=== PATIENT | male | born 1970 | race Caucasian/White ===

== ENCOUNTER 2022-10-06 06:25 | Day surgery (SDC) | payer OTHER ==
[~2022-10-06] VITALS: Ht 193 cm; Wt 130.2 kg
[~2022-10-06 06:25] MED LIST: AVAPRO150 MG PO; IBU400 MG PO; LISINOPRIL10 MG PO; VITAMIN C100 MG PO; VITAMIN C500 M5 PO; ZYRTEC10 MG PO
[2022-10-06] MEDS ORDERED: BUDESONIDE0.5 MG/2 M INH (06:48)
--- NOTE | 2022-10-06 08:13 | NUR ---
10/06/22 0813 Xi Pulliam 0801- PT ARRIVES TO PACU AWAKE AND TALKING WITH STAFF. PT REPORTS NO PAIN OR NAUSEA. RESP EVEN AND UNLABORED. OXYGEN SAT MID 90'S ON 2L VIA NC. PT REPORTS HE IS HAVING INTERMITTENT CRAMPING. PT ENCOURAGED TO PASS FLATUS. 0809- PT PASSING FLATUS. 0812- OXYGEN TITRATED OFF.
--- NOTE | 2022-10-06 08:29 | NUR ---
PT ALERT,ORIENTED AND SUPPORTED BY HIS PILAR. PT HERE FOR HIS FIRST SCOPE. ALL QUESTIONS ASKED ANSWERED, PILAR WILL REMAIN FOR DC. BLESSING GIVEN. WILL FOLLOW
--- NOTE | 2022-10-06 11:09 | OR ---
[facility] [address] [place], [place] [address] Signed DATE OF OPERATION: 10/06/2022 SURGEON: Hilary Mcwilliams MD PREOPERATIVE DIAGNOSIS: Screening. POSTOPERATIVE DIAGNOSES: 1. Biopsy of the terminal ileum/ileocecal valve (? Lymphoid tissue). 2. 4 mm polyp at 40 cm. 3. Minimal sigmoid diverticulosis. PROCEDURE: Colonoscopy with hot biopsy. ESTIMATED BLOOD LOSS: None. INDICATIONS: Jennie is a 52-year-old gentleman, who initially came in October of 2021 to schedule his initial screening colonoscopy. 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 He also had an arthroscopy of his knee at that time. He then came back in July to reschedule the screening colonoscopy. He said he has no lower GI complaints. He had spoken to his father and found out that his father did not have any colonic polyps. There is otherwise no family history of colon cancer or polyps in the remainder of the family. In the office, I had given Jennie a pamphlet on colonoscopy. He understands the nature of the test. There is risk including, but not limited to gas bloating, crampy abdominal pain, bleeding, perforation requiring surgery, and missed diagnosis. He also understands the need for IV conscious sedation. He had expressed understanding and wished to proceed. PROCEDURE NOTE: Jennie was taken into our endoscopy suite and placed in the left lateral decubitus position. He was given IV sedation with 150 mcg of fentanyl and 7 mg of Versed. A digital rectal exam was performed and this was unremarkable. No external hemorrhoids. He had good sphincter tone. Just minimal induration to the prostate. The adult colonoscope was then introduced and advanced all around into the cecum under direct visualization of the camera without difficulty. It took just a little extra sedation during the procedure. He seems to have some level of sleep apnea as well. Overall, his prep was good. We could easily see the cecum and the ileocecal valve. He had some Electronically Signed By: HILARY MCWILLIAMS MD 10/06/22 1109 PATIENT NAME: JENNIE JETER OPERATIVE REPORT DATE OF : 70 REPORT #: [id number] PHYSICIAN: HILARY MCWILLIAMS MD PCP: MARE LR PA-C REPORT IS CONFIDENTIAL AND NOT TO BE RELEASED WITHOUT AUTHORIZATION [facility] [address] [place] [id number] Signed multilobulated lymphoid tissue there at the opening to the ileocecal valve. We went ahead and took several biopsies in this area for pathologic review. We had turned the camera opening short distance and we were unable to pass it any further up the terminal ilium. It looked healthy to us. The scope was then slowly withdrawn. He did have a small polyp back at 40 cm which we removed with the help of hot biopsy forceps. He has very minimal sigmoid diverticulosis. They were small in size, few in number, and scattered about. The rectum was unremarkable. Upon retroflexion of the scope, there was no additional pathology noted above the anal canal. After this, the gas was suctioned out and the colonoscope removed. Jennie tolerated the procedure quite well. RECOMMENDATIONS: I will see Jennie back in my office in 7 to 14 days to review his results. Hilary Mcwilliams MD ALB/MODL /[id number] cc: MD Mare Leblanc PA Copies: HILARY MCWILLIAMS MD ~ Electronically Signed By: HILARY MCWILLIAMS MD 10/06/22 1109 PATIENT NAME: JENNIE JETER OPERATIVE REPORT DATE OF : 70 REPORT #: [id number] PHYSICIAN: HILARY MCWILLIAMS MD PCP: MARE LR PA-C REPORT IS CONFIDENTIAL AND NOT TO BE RELEASED WITHOUT AUTHORIZATION
--- NOTE | 2022-10-07 16:24 | PATH ---
[facility] [address] [facility] [place] [address] Signed SPECIMEN(S): A ILEOCECAL VALVE CECAL BX SPECIMEN(S): B COLON POLYP AT 40 CM SPECIMEN SOURCE: A. ILEOCECAL VALVE CECAL BX B. COLON POLYP AT 40 CM CLINICAL HISTORY: Screening. Diverticulosis. FINAL PATHOLOGIC DIAGNOSIS: A. Ileocecal valve and cecal biopsy: - Benign small bowel-type mucosa with focal superficial epithelial erosion. - Negative for atypical features. B. Colon polyp at 40 cm: - Hyperplastic polyp (one fragment). J[facility]:C2NR MICROSCOPIC EXAMINATION: Histologic sections of all submitted blocks are examined by light microscopy. These findings, together with the gross examination, support the pathologic diagnosis. GROSS DESCRIPTION: A. The specimen, labeled and designated "Brenda, ileocecal valve and cecum biopsy," is received in formalin and consists of three colon soft tissue fragments, ranging from 0.2 cm. Entirely submitted in (A1). B. The specimen, labeled and designated "Brenda, colon polyp at 40 cm," is received in formalin and consists of one colon soft tissue fragment, 0.1 cm. Entirely submitted in (B1). JS (under the direct supervision of a pathologist) The Gross Description was prepared using a voice recognition system. The report was reviewed for accuracy; however, sound-alike word errors, addition and/or deletions may occur. If there is any question about this report, please contact Client Services. PERFORMING LABORATORY: The technical component was performed by [employer], [address] [place] [id number] (CLIA# [id number]). Professional interpretation was performed by [employer] Pathology [facility] PATIENT NAME: JENNIE JETER PATHOLOGY DATE OF : 70 REPORT #: [id number] PHYSICIAN: NATALIE ANNE PCP: MARE LR PA-C REPORT IS CONFIDENTIAL AND NOT TO BE RELEASED WITHOUT AUTHORIZATION [facility] [address] [place], [place] [address] [place] [address] (CLIA#: [id number]). Diagnostician: Daniel Fierro MD Pathologist Electronically Signed 10/07/2022 Copies: ~ PATIENT NAME: JENNIE JETER PATHOLOGY DATE OF : 70 REPORT #: [id number] PHYSICIAN: NATALIE ANNE PCP: MARE LR PA-C REPORT IS CONFIDENTIAL AND NOT TO BE RELEASED WITHOUT AUTHORIZATION
== END 2022-10-06 08:45 | disposition home or self-care (01) ==
LOC: OPS 06:25 → DS 06:25 → OPS 08:45
PROVIDERS: ATTEND Colon & Rectal Surgery
PROC: 0DDH8ZX Extraction of Cecum, Via Natural or Artificial Opening Endoscopic, Diagnostic (ICD-10-PCS; principal; 2022-10-06 07:30)
DX: Z12.11 Encounter for screening for malignant neoplasm of colon (principal); K63.5 Polyp of colon; I10 Essential (primary) hypertension; J30.2 Other seasonal allergic rhinitis; E66.9 Obesity, unspecified; K57.30 Diverticulosis of large intestine without perforation or abscess without bleeding
CPT/HCPCS: 99153; G0500; J0690; J2250; J3010; J7121